=== PATIENT | female | born 1955 | race Caucasian/White ===

== ENCOUNTER 2016-10-03 19:38 | Emergency (ER) | payer OTHER ==
[~2016-10-03] VITALS: Ht 154.9 cm; Wt 70.3 kg
[~2016-10-03 19:38] MED LIST: ATIVAN0.5 M1 PO; ATIVAN2 MG PO; CIMETIDINE400 M1; ENALAPRIL MALEA20 M1; PROZAC20 MG PO
[2016-10-03 19:45] VITALS: BP 135/89
--- NOTE | 2016-10-03 20:01 | NUR ---
AMBULATED TO ER BED 7
--- NOTE | 2016-10-03 20:10 | NUR ---
61 Y/O C/O ABD PAIN AND DISCONFORT ON LOWER ABD. DENIES ANY BURNING WITH URINATION, FEVER, NAUSEA OR VOMMITING. PT STATES HAS A HX OF DIVERTICULATIS. ER MD AWARED OF IT.
--- NOTE | 2016-10-03 20:58 | NUR ---
PER ER MD VERBAL ORDERS 0.9 NORMAL SALINE INITIATED 100 ML/HR.
[2016-10-03] MEDS ORDERED: NACL 0.9% 1,000 ML IV ONE (21:00)
[2016-10-03 21:32] VITALS: BP 142/84
--- NOTE | 2016-10-03 21:32 | NUR ---
Patient discharged with v/s stable. Written and verbal after care instructions given and explained. Patient alert, oriented and verbalized understanding of instructions. Ambulatory with steady gait. All questions addressed prior to discharge. ID band removed. Patient advised to follow up with PMD. Rx of AUGMENTIN AND RANITIDINE HYDROCHLORIDE given. Patient educated on indication of medication including possible reaction and side effects. Opportunity to ask questions provided and answered.
== END 2016-10-03 21:45 | disposition home or self-care (01) ==
LOC: MED 19:38
DX: N39.0 Urinary tract infection, site not specified (principal); K21.9 Gastro-esophageal reflux disease without esophagitis; I10 Essential (primary) hypertension; Z88.8 Allergy status to other drugs, medicaments and biological substances
CPT/HCPCS: 81001; 87086; 87186; 96360; 99284; J7030

== ENCOUNTER 2016-12-12 21:11 | Emergency (ER) | payer OTHER ==
[~2016-12-12] VITALS: Ht 157.5 cm; Wt 76.3 kg
[~2016-12-12 21:11] MED LIST changes: -ATIVAN0.5 M1 PO; -ATIVAN2 MG PO; -CIMETIDINE400 M1; +ENAL20TA6; -ENALAPRIL MALEA20 M1; +FLUO-387 PO; +LORA-478 PO; -PROZAC20 MG PO; +[UNRECOGNIZED DRUG - CODE]
[2016-12-12 21:30] VITALS: BP 144/96
--- NOTE | 2016-12-12 23:42 | NUR ---
TO ER BED 5
--- NOTE | 2016-12-12 23:47 | NUR ---
61 Y/O F W/C/O ABD DISTENTION FOR 1 WEEK, NO BM FOR 3 DAYS, FEET ON "FIRE", AND "FEELS" DEHYDRATED. NO S/S OF DISTRESS NOTED.MED HX: DIVERTICULITIS, COPD, ACID REFLUX, CHRONIC ANXIETY.
[2016-12-13] MEDS ORDERED: DICYCLOMINE HCL LIQUID 20 MG, ALUMINUM HYD/MAG/SIMETHICONE 30 ML, LIDOCAINE VISCOUS 2% ... PO ONE ×3 (00:10)
[2016-12-13] MEDS ORDERED: ALUMINUM HYD/MAG/SIMETHICONE 30 ML UDC ONE (00:16)
[2016-12-13] MEDS ORDERED: LIDOCAINE VISCOUS 2% 20 ML UDC ONE (00:16)
[2016-12-13] MEDS ORDERED: DICYCLOMINE HCL LIQUID 10 MG/5 ML UDC ONE (00:30)
[2016-12-13] MEDS ORDERED: MAGNESIUM CITRATE 300 ML BTL PO ONE (00:50)
[2016-12-13 01:11] VITALS: BP 139/86
--- NOTE | 2016-12-13 01:11 | NUR ---
Patient discharged with v/s stable. Written and verbal after care instructions given and explained. Patient alert, oriented and verbalized understanding of instructions. Ambulatory with steady gait. All questions addressed prior to discharge. ID band removed. Patient advised to follow up with PMD THIS WK OR RETURN TO ER IF CONDITION WORSENS. Rx of COLACE, AND DIPHENHYDRAMINE HYDROCHLORIDE given. Patient educated on indication of medication including possible reaction and side effects. Opportunity to ask questions provided and answered.
== END 2016-12-13 01:11 | disposition home or self-care (01) ==
LOC: MED 21:11
DX: K59.00 Constipation, unspecified (principal); K21.9 Gastro-esophageal reflux disease without esophagitis; I10 Essential (primary) hypertension; Z88.8 Allergy status to other drugs, medicaments and biological substances
CPT/HCPCS: 74000; 93005; 99284

== ENCOUNTER 2017-03-11 12:34 | Emergency (ER) | payer OTHER ==
[~2017-03-11] VITALS: Ht 154.9 cm; Wt 76.7 kg
[2017-03-11 13:20] VITALS: BP 155/76
--- NOTE | 2017-03-11 17:36 | NUR ---
Patient ambulated to bed 5. RN evaluating patient at bedside.
--- NOTE | 2017-03-11 17:40 | NUR ---
PATIENT PRESENTS TO ED WITH C/O ABDOMINAL DISCOMFORT WITH HEARTBURN AND SENSATION OF BEING BLOATED X 1 WK CONSTIPATION AND WATERY STOOLS HX---DIVERTICULITIS, GERD, COPD, HTN, ANXIETY, RX---ATIVAN, AMBIEN . DENIES N/V/; SKIN IS PINK/WARM/DRY; AAOX4 WITH EVEN AND STEADY GAIT; LUNGS CLEAR BL; HR EVEN AND REGULAR; PT DENIES ANY FEVER, CP, SOB, OR COUGH AT THIS TIME; PATIENT STATES PAIN OF 0/10 AT THIS TIME; VSS; PATIENT POSITIONED FOR COMFORT; HOB ELEVATED; BEDRAILS UP X2; BED DOWN. ER MD MADE AWARE OF PT STATUS.
[2017-03-11] MEDS ORDERED: NACL 0.9% 1,000 ML IV SCH (17:42)
[2017-03-11] MEDS ORDERED: ONDANSETRON 4 MG/2 ML VIAL IVP ONE (17:45)
[2017-03-11] MEDS ORDERED: FAMOTIDINE 20 MG/2 ML VIAL IVP ONE (17:45)
[2017-03-11 18:09] LABS: CALCIUM 9.2 mg/dL (8.5-10.1); CARBON DIOXIDE 25.5 mmol/L (21-32); POTASSIUM 4.5 mmol/L (3.5-5.1)
[2017-03-11 18:10] LABS: APPEARANCE,URINE SL CLOUDY (CLEAR); BILIRUBIN,URINE NEGATIVE (NEGATIVE); BLOOD, URINE TRACE-I (NEGATIVE); COLOR,URINE YELLOW (YELLOW); LEUKOCYTE ESTERASE ,URINE NEGATIVE (NEGATIVE); NITRITE, URINE POSITIVE (NEGATIVE); PH,URINE 5.5 (5.0-9.0); PROTEIN,URINE NEGATIVE (NEGATIVE); UGLUCOSE NEGATIVE (NEGATIVE); UROBILINOGEN,URINE 0.2 EU/dL (0.2 - 1)
[2017-03-11 18:15] LABS: BACTERIA,URINE 4+ /HPF (None Seen); SQUAMOUS EPITHELIAL CELL,UR 4-10 (MOD) /LPF (0-3 (FEW))
[2017-03-11 18:17] LABS: ALBUMIN 3.6 g/dL (3.4-5.0); TOTAL BILIRUBIN 0.3 mg/dL (0.0-1.0); TOTAL PROTEIN, SERUM 8.4 g/dL (6.4-8.2)
--- NOTE | 2017-03-11 18:21 | NUR ---
Dr. Moore evaluating patient at bedside.
--- NOTE | 2017-03-11 18:35 | NUR ---
computer tech at bedside.
[2017-03-11] MEDS ORDERED: cefTRIAXone 1,000 MG VIAL ONE (18:40)
[2017-03-11 19:13] LABS: BASOPHILS # (AUTO) 0.1 K/uL (0.00-0.22); BASOPHILS % (AUTO) 2.1 % (0.0-2.0); EOSINOPHILS # (AUTO) 0.3 K/uL (0-0.4); EOSINOPHILS % (AUTO) 4.9 % (0.0-4.0); HEMATOCRIT 41.4 % (36-48); HEMOGLOBIN 13.5 g/dL (12.0-16.0); LYMPHOCYTES % (AUTO) 28.4 % (20.5-51.1); MEAN CORPUSCULAR HEMOGLOBIN 30 pg (27-31); MEAN CORPUSCULAR HGB CONC 33 g/dL (33-37); MEAN CORPUSCULAR VOLUME 91 fL (80-94); MONOCYTES # (AUTO) 0.6 K/uL (0.8-1.0); MONOCYTES % (AUTO) 8.1 % (1.7-9.3); NEUTROPHILS % (AUTO) 56.5 % (42.2-75.2); PLATELET COUNT (AUTO) 301 K/uL (140-450); RED BLOOD CELL COUNT(AUTO) 4.55 MIL/uL (4.20-5.40); RED CELL DISTRIBUTION WIDTH 12.4 % (11.6-13.7)
[2017-03-11 19:30] VITALS: BP 133/85
--- NOTE | 2017-03-11 19:30 | NUR ---
Patient discharged with v/s stable. Written and verbal after care instructions given and explained. Patient alert, oriented and verbalized understanding of instructions. Ambulatory with steady gait. All questions addressed prior to discharge. ID band removed. Patient advised to follow up with PMD. Rx of KEFLEX, TYLENOL, COLACE, [employer] DISPOSABLE RECTAL ENEMA given. Patient educated on indication of medication including possible reaction and side effects. Opportunity to ask questions provided and answered.
== END 2017-03-11 19:30 | disposition home or self-care (01) ==
LOC: MED 12:34
DX: N30.90 Cystitis, unspecified without hematuria (principal); K59.00 Constipation, unspecified; K21.9 Gastro-esophageal reflux disease without esophagitis; I10 Essential (primary) hypertension; Z88.8 Allergy status to other drugs, medicaments and biological substances
CPT/HCPCS: 36415; 74000; 80053; 81001; 82150; 83690; 85025; 87086; 87186; 96361; 96365; 96375; 99285; J0696; J2405; J3490; J7030; J7060; Q0092

== ENCOUNTER 2017-11-25 22:25 | Emergency (ER) | payer OTHER ==
[~2017-11-25] VITALS: Ht 154.9 cm; Wt 74.8 kg
[~2017-11-25 22:25] MED LIST changes: -FLUO-387 PO
[2017-11-25 22:31] VITALS: BP 158/81
--- NOTE | 2017-11-25 22:37 | NUR ---
PT TAKEN TO CHAIR D
--- NOTE | 2017-11-25 22:40 | NUR ---
PATIENT IS A 62 Y/O FEMALE WHO PRESENTS TO THE ED C/O RIGHT FOOT PAIN. PT STATES, "I HIT MY FOOT ON THE PORCH AND IT HURTS." PT REPORTS 10/10 ACHING RIGHT FOOT PAIN THAT DOES NOT RADIATE. NO BLEEDING OR DEFORMITY NOTED. PT DENIES CP, SOB, N/V/D. PT AAOX4, RR EVEN/UNLABORED. PT REPOSITIONED FOR COMFORT, PT SITTING IN CHAIR. ER MD JEWELL SECHRIST NOTIFIED. WILL CONTINUE TO MONITOR.
--- NOTE | 2017-11-25 22:46 | NUR ---
PT TAKEN TO RADIOLOGY
--- NOTE | 2017-11-25 23:02 | NUR ---
Dr. Noel evaluating patient.
[2017-11-25] MEDS ORDERED: HYDROcodone/APAP 5/325 MG 1 TAB TAB PO ONE (23:10)
[2017-11-26 01:45] VITALS: BP 150/99
--- NOTE | 2017-11-26 01:45 | NUR ---
Patient discharged with v/s stable. Written and verbal after care instructions given and explained. Patient verbalized understanding. Ambulatory with steady gait. All questions addressed prior to discharge. Advised to follow up with PMD.
== END 2017-11-26 01:45 | disposition home or self-care (01) ==
LOC: MED 22:25
DX: S93.601A Unspecified sprain of right foot, initial encounter (principal); S80.01XA Contusion of right knee, initial encounter; M54.2 Cervicalgia; J44.9 Chronic obstructive pulmonary disease, unspecified; K21.9 Gastro-esophageal reflux disease without esophagitis; I10 Essential (primary) hypertension; Z88.8 Allergy status to other drugs, medicaments and biological substances; Z90.710 Acquired absence of both cervix and uterus; F17.210 Nicotine dependence, cigarettes, uncomplicated; W18.39XA Other fall on same level, initial encounter; Y93.89 Activity, other specified; Y92.89 Other specified places as the place of occurrence of the external cause; Y99.8 Other external cause status
CPT/HCPCS: 72050; 73562; 73630; 99284

== ENCOUNTER 2018-03-05 04:55 | Emergency (ER) | payer OTHER ==
[~2018-03-05] VITALS: Ht 152.4 cm; Wt 71.2 kg
[2018-03-05 04:59] VITALS: BP 145/89
--- NOTE | 2018-03-05 05:04 | NUR ---
PT AMBULATED TO BED 6
--- NOTE | 2018-03-05 05:10 | NUR ---
62 Y/O BIB SELF W/C/O CHEST CONGESTION X 3DAYS. PT DENIES N/V/D/ AND PAIN. PT STATES SHE HAS HAD A COUGH X3DAYS WITH WHITE PHLEM. PT AAOX4, ON ROOM AIR O2 SAT: 99%. RR EVEN/UNLABORED. NO S/S OF DISTRESS NOTED. SKIN WARM AND DRY TO TOUCH. ALL NEEDS MET, WILL CONTINUE TO MONITOR, DR. PATEL MADE AWARE
--- NOTE | 2018-03-05 05:39 | NUR ---
X-Ray at bedside.
--- NOTE | 2018-03-05 05:39 | NUR ---
LABS DRAWN AT THIS TIME. PT TOLERATED WELL
[2018-03-05 05:48] LABS: BASOPHILS % (AUTO) 0.6 % (0.0-2.0); EOSINOPHILS # (AUTO) 0.2 K/uL (0-0.4); EOSINOPHILS % (AUTO) 3.5 % (0.0-4.0); LYMPHOCYTES # (AUTO) 1.7 K/uL (2.5-16.5); MEAN CORPUSCULAR HEMOGLOBIN 31 pg (27-31); MEAN CORPUSCULAR HGB CONC 34 g/dL (33-37); MEAN CORPUSCULAR VOLUME 89.6 fL (80-94); MONOCYTES # (AUTO) 0.7 K/uL (0.8-1.0); MONOCYTES % (AUTO) 10.8 % (1.7-9.3); NEUTROPHILS # (AUTO) 3.8 K/uL (1.8-7.7); NEUTROPHILS % (AUTO) 59.1 % (42.2-75.2); PLATELET COUNT (AUTO) 262 K/uL (140-450); RED BLOOD CELL COUNT(AUTO) 4.24 MIL/uL (4.20-5.40); RED CELL DISTRIBUTION WIDTH 13.4 % (11.6-13.7); WHITE BLOOD COUNT (AUTO) 6.5 K/uL (4.8-10.8)
[2018-03-05 05:55] LABS: ANION GAP 12.6 (8-16); CARBON DIOXIDE 25.5 mmol/L (21-32); CREATININE 1.1 mg/dL (0.6-1.3); POTASSIUM 4.1 mmol/L (3.5-5.1)
[2018-03-05 06:01] LABS: ALBUMIN 3.5 g/dL (3.4-5.0); TOTAL BILIRUBIN 0.4 mg/dL (0.0-1.0)
--- NOTE | 2018-03-05 06:21 | NUR ---
Dr. Atkins evaluating patient at bedside.
--- NOTE | 2018-03-05 06:27 | NUR ---
Patient discharged BY DR. PATEL with v/s stable. Written and verbal after care instructions given and explained. Patient alert, oriented and verbalized understanding of instructions. Ambulatory with steady gait. All questions addressed prior to discharge. ID band removed. Patient advised to follow up with PMD. Rx of AUGMENTIN 875 MG AND PROMETHAZINE DM 6.25 MG given. Patient educated on indication of medication including possible reaction and side effects. Opportunity to ask questions provided and answered.
[2018-03-05 06:28] VITALS: BP 135/82
== END 2018-03-05 06:27 | disposition home or self-care (01) ==
LOC: MED 04:55
DX: J20.9 Acute bronchitis, unspecified (principal); J44.9 Chronic obstructive pulmonary disease, unspecified; K21.9 Gastro-esophageal reflux disease without esophagitis
CPT/HCPCS: 36415; 71045; 80053; 83880; 84484; 85025; 93005; 99285; Q0092

== ENCOUNTER 2018-10-29 15:47 | Emergency (ER) | payer OTHER ==
[~2018-10-29] VITALS: Ht 154.9 cm; Wt 75.7 kg
[2018-10-29 16:50] VITALS: BP 184/80
--- NOTE | 2018-10-29 18:15 | NUR ---
PATIENT AMBULATED TO ER CHAIR E.
--- NOTE | 2018-10-29 18:20 | NUR ---
PT IS A 63 Y/O FEMALE WHO PRESENTS TO THE ED C/O COUGH. PER PT HAD COUGH X4 DAYS HOME OFFICE REPRESENTATIVE, REPORTS YELLOW PHLEGM. PT REPORTS 5/10 ACHING HEADACHE PAIN THAT DOES NOT RADIATE. PT DENIES CP, SOB, DENIES N/V/D. PT AWAKE AND ALERT, RR EVEN/UNLABORED. PT REPOSITIONED FOR COMFORT, BED IN LOWEST POSITION. ER PROVIDER NOTIFIED. WILL CONTINUE TO MONITOR. PMH--COPD, DIVERTICULITIS ALLERGIES---COMPAZINE
[2018-10-29] MEDS ORDERED: DEXAMETHASONE 10 MG/ML VIAL IM ONE (19:50)
[2018-10-29 20:18] VITALS: BP 160/81
--- NOTE | 2018-10-29 20:18 | NUR ---
Patient discharged with v/s stable. Written and verbal after care instructions given and explained. Patient alert, oriented and verbalized understanding of instructions. Ambulatory with steady gait. All questions addressed prior to discharge. ID band removed. Patient advised to follow up with PMD. Rx of ALBUTEROL 90MCG, PROMETHAZINE DM 6.25MG-15MG/5ML AND IBUPROFEN 800MG given. Patient educated on indication of medication including possible reaction and side effects. Opportunity to ask questions provided and answered.
== END 2018-10-29 20:18 | disposition home or self-care (01) ==
LOC: MED 15:47
DX: J06.9 Acute upper respiratory infection, unspecified (principal); J44.9 Chronic obstructive pulmonary disease, unspecified; K21.9 Gastro-esophageal reflux disease without esophagitis; I10 Essential (primary) hypertension; Z79.899 Other long term (current) drug therapy; Z88.8 Allergy status to other drugs, medicaments and biological substances
CPT/HCPCS: 96372; 99283; J1100

== ENCOUNTER 2019-01-10 17:27 | Emergency (ER) | payer OTHER ==
[~2019-01-10] VITALS: Ht 152.4 cm; Wt 72.3 kg
[2019-01-10 17:35] VITALS: BP 148/91
--- NOTE | 2019-01-10 17:40 | NUR ---
PT AMBUALTED TO LOBBY AT THIS TIME, VSS.
--- NOTE | 2019-01-10 17:50 | NUR ---
C/O COUGH X3 DAYS. PT REPORTS COUGHING UP GREEN SPUTUM. PT REPORTS SOB WHEN COUGHING. RR EVEN, SYMMETRICAL, NON-LABORED AND BREATH SOUNDS CLEAR. PT REPORTS BODY ACHES AT 10/10.
--- NOTE | 2019-01-10 19:12 | NUR ---
Patient discharged with v/s stable. Written and verbal after care instructions given and explained. Patient alert, oriented and verbalized understanding of instructions. Ambulatory with steady gait. All questions addressed prior to discharge. ID band removed. Patient advised to follow up with PMD. Rx of Motrin, Robitussin and Prednisone given. Patient educated on indication of medication including possible reaction and side effects. Opportunity to ask questions provided and answered.
[2019-01-10 19:16] VITALS: BP 130/87
== END 2019-01-10 19:12 | disposition home or self-care (01) ==
LOC: MED 17:27
DX: J06.9 Acute upper respiratory infection, unspecified (principal); J44.9 Chronic obstructive pulmonary disease, unspecified; K21.9 Gastro-esophageal reflux disease without esophagitis; I10 Essential (primary) hypertension; Z87.891 Personal history of nicotine dependence; Z79.899 Other long term (current) drug therapy; Z88.8 Allergy status to other drugs, medicaments and biological substances
CPT/HCPCS: 71046; 99283

== ENCOUNTER 2019-01-12 18:28 | Emergency (ER) | payer OTHER ==
[~2019-01-12] VITALS: Ht 154.9 cm; Wt 73.0 kg
[2019-01-12 18:39] VITALS: BP 174/106
--- NOTE | 2019-01-12 18:45 | NUR ---
Note marieone in EDM - 01/12/19 at 2201 by MEDDCV Patient discharged with v/s stable. Written and verbal after care instructions given and explained. Patient alert, oriented and verbalized understanding of instructions. Ambulatory with steady gait. All questions addressed prior to discharge. ID band removed. Patient advised to follow up with PMD. Rx of PRELONE 15MG/5ML AND BENADRYL ALLERGY 12.5MG/5ML given. Patient educated on indication of medication including possible reaction and side effects. Opportunity to ask questions provided and answered.
--- NOTE | 2019-01-12 19:20 | NUR ---
PT BIB SELF C/O COUGHING X4 DAYS WAS SEEN HERE BUT COUGH HAS GOT WORSE. PT ACTING APPROPRIATLY. PT SPEAKING IN CLEAR AND COMPLETE SENTENCES. DR. MCCRAY AT BEDSIDE FOR EVALUATION. WILL CONTINUE TO MONITOR.
--- NOTE | 2019-01-12 19:20 | NUR ---
DR. MCCRAY AT BEDSIDE FOR EVALUATION.
[2019-01-12] MEDS ORDERED: DOXYCYCLINE 100 MG CAP PO SCH (19:25)
[2019-01-12] MEDS ORDERED: ALBUTEROL SULFATE/IPRATROPIU 3 ML SOL IH ONE (19:25)
--- NOTE | 2019-01-12 20:59 | NUR ---
Patient discharged with v/s stable. Written and verbal after care instructions given and explained. Patient alert, oriented and verbalized understanding of instructions. Ambulatory with steady gait. All questions addressed prior to discharge. ID band removed. Patient advised to follow up with PMD. Rx of DOXYCYLINE given. Patient educated on indication of medication including possible reaction and side effects. Opportunity to ask questions provided and answered.
[2019-01-12 21:00] VITALS: BP 168/97
== END 2019-01-12 21:00 | disposition home or self-care (01) ==
LOC: MED 18:28
DX: J44.1 Chronic obstructive pulmonary disease with (acute) exacerbation (principal); K21.9 Gastro-esophageal reflux disease without esophagitis; I10 Essential (primary) hypertension; Z79.899 Other long term (current) drug therapy; Z88.8 Allergy status to other drugs, medicaments and biological substances
CPT/HCPCS: 94640; 99283; J7620

== ENCOUNTER 2019-12-15 16:18 | Inpatient (IN) | payer OTHER, MEDICARE, SELFPAY ==
[~2019-12-15] VITALS: Ht 152.4 cm; Wt 73.5 kg
--- NOTE | 2019-12-15 16:32 | NUR ---
PT AMBULATED TO BED 6.
[2019-12-15 16:36] VITALS: BP 146/101
--- NOTE | 2019-12-15 16:41 | NUR ---
64 Y/O FEMALE C/O NAUSEA/VOMITING/DIARRHEA SINCE THIS MORNING. DENIES ABD PAIN. ABD SOFT, ROUND, NONTENDER. RR EVEN AND UNLABORED. BOWEL SOUNDS PRESENT X 4 QUAD. PT POSITIONED FOR COMFORT. HOB ELEVATED. PT PLACED ON MONITOR. VSS
--- NOTE | 2019-12-15 16:43 | NUR ---
URINE CUP HANDED TO PT FOR SAMPLE
[2019-12-15] MEDS ORDERED: ONDANSETRON 4 MG/2 ML VIAL IVP ONE (16:45)
[2019-12-15] MEDS ORDERED: NACL 0.9% 1,000 ML IV ONE (16:45)
--- NOTE | 2019-12-15 16:56 | NUR ---
EKG PERFORMED AT BEDSIDE
[2019-12-15 17:02] LABS: BASOPHILS # (AUTO) 0.1 K/uL (0.00-0.22); BASOPHILS % (AUTO) 0.5 % (0.0-2.0); EOSINOPHILS % (AUTO) 0.1 % (0.0-4.0); HEMATOCRIT 48.9 % (36-48); HEMOGLOBIN 16.6 g/dL (12.0-16.0); LYMPHOCYTES # (AUTO) 1.5 K/uL (2.5-16.5); LYMPHOCYTES % (AUTO) 9.2 % (20.5-51.1); MEAN CORPUSCULAR HEMOGLOBIN 31 pg (27-31); MEAN CORPUSCULAR HGB CONC 34 g/dL (33-37); MEAN CORPUSCULAR VOLUME 90.2 fL (80-94); MONOCYTES # (AUTO) 1.1 K/uL (0.8-1.0); NEUTROPHILS # (AUTO) 13.7 K/uL (1.8-7.7); NEUTROPHILS % (AUTO) 83.2 % (42.2-75.2); PLATELET COUNT (AUTO) 438 K/uL (140-450); RED BLOOD CELL COUNT(AUTO) 5.42 MIL/uL (4.20-5.40); WHITE BLOOD COUNT (AUTO) 16.4 K/uL (4.8-10.8)
[2019-12-15 17:23] LABS: ALBUMIN 4.3 g/dL (3.4-5.0); ANION GAP 18.8 (8-16); CARBON DIOXIDE 25.1 mmol/L (21-32); CREATININE 1.3 mg/dL (0.6-1.3); POTASSIUM 3.9 mmol/L (3.5-5.1); TOTAL BILIRUBIN 0.8 mg/dL (0.0-1.0)
--- NOTE | 2019-12-15 17:35 | NUR ---
FLU SWAB COLLECTED AND GIVEN TO TRAIL CONSTRUCTION WORKER.
--- NOTE | 2019-12-15 17:35 | NUR ---
XR AT BEDSIDE.
[2019-12-15 17:40] LABS: BILIRUBIN,URINE 1+ (NEGATIVE); BLOOD, URINE TRACE-I (NEGATIVE); COLOR,URINE YELLOW (YELLOW); LEUKOCYTE ESTERASE ,URINE NEGATIVE (NEGATIVE); NITRITE, URINE NEGATIVE (NEGATIVE); PH,URINE 5.5 (5.0-9.0); UGLUCOSE NEGATIVE (NEGATIVE)
[2019-12-15 17:41] LABS: APPEARANCE,URINE CLOUDY (CLEAR)
[2019-12-15 18:08] LABS: RBC,URINE 0-5 /HPF (0-5); URINE AMORPHOUS URATE 4+ /HPF (None Seen); WBC,URINE 0-5 /HPF (0-5)
[2019-12-15] MEDS ORDERED: METOCLOPRAMIDE 10 MG/2 ML INJ VIAL IVP ONE (18:30)
[2019-12-15] MEDS ORDERED: METOCLOPRAMIDE 10 MG/2 ML INJ VIAL ONE (18:31)
[2019-12-15] MEDS ORDERED: ONDANSETRON 4 MG/2 ML VIAL IM/IVP PRN (18:40)
[2019-12-15] MEDS ORDERED: DOCUSATE SODIUM 100 MG GELCAP PO PRN (18:40)
[2019-12-15] MEDS ORDERED: ACETAMINOPHEN 325 MG TAB PO PRN (18:40)
[2019-12-15 18:58] LABS: BARBITURATE, URINE NEGATIVE ng/ml (NEG <=200); BENZODIAZEPINE, URINE POSITIVE ng/mL (NEG <=200); CANNABINOID, URINE POSITIVE ng/mL (NEG <=50); COCAINE, URINE NEGATIVE ng/mL (NEG <=300); OPIATE, URINE NEGATIVE ng/mL (NEG <=2000); PHENCYCLIDINE SCREEN,URINE NEGATIVE ng/mL (NEG <=25)
[2019-12-15 19:45] VITALS: BP 144/93
--- NOTE | 2019-12-15 19:45 | NUR ---
RECEIVED BEDSIDE REPORT FROM SHE ASENCIO. PT IS AAOX2 SELF, PLACE. RESPIRATIONS ARE EQUAL AND UNLABORED ON ROOM AIR. LUNG SOUNDS ARE CLEAR. SPEECH IS CLEAR. PT IS ABLE TO FOLLOW COMMAND. PT AMBULATED FROM GURNEY TO BED WITH ASSIST. PT WITH STEADY GAIT BUT STATES FEELS DIZZY. SKIN IS INTACT. IV ON LAC 20G. C/C N/V/D X1 DAY. PT STATES HAD 3 EPISODES OF DIARRHEA AT HOME NON BLOODY. BOWEL SOUNDS ACTIVE X4. ABDOMEN IS SOFT AND NON TENDER. PT DENIES ANY PAIN. PT CAN MOVE ALL EXTREMITIES EQUALLY. ADMIT VS: 144/93 HR 103 96% RA RR 16 98.2 DENIES PAIN. ORIENTED PT TO ROOM, STAFF AND CALL LIGHT. MRSA SWAB OBTAINED. CALL LIGHT IS WITHIN REACH. WILL CONTINUE TO MONITOR.
--- NOTE | 2019-12-15 19:45 | NUR ---
Patient will be admitted to care of Dr. Smith. Admited to TELE. Will go to room 121 A. Belongings list completed. Report to ELIF Sinha.
[2019-12-15] MEDS ORDERED: cefTRIAXone 1,000 MG VIAL ONE (20:22)
[2019-12-15] MEDS: NACL 0.9% 1,000 ML IV SCH (20:30)
--- NOTE | 2019-12-15 20:30 | NUR ---
VSS. IV ROCEPHIN NOW INFUSING PER ORDERS. ALL NEEDS MET AT THIS TIME. WILL CONTINUE TO MONITOR.
[2019-12-15] MEDS: LISINOPRIL 5 MG TAB PO SCH (20:36)
--- NOTE | 2019-12-15 21:00 | NUR ---
COLLECTED URINE SPECIMEN AND SENT TO LAB FOR URINE CX. PT IS BACK IN BED WITH NO S/S OF DISTRESS. WILL CONTINUE TO MONITOR.
[2019-12-15] MEDS: metroNIDAZOLE 500 MG/NS PREMIX 100 ML IV SCH (21:08)
[2019-12-15 21:12] LABS: PROTHROMBIN TIME 9.7 secs (10.8-13.4)
[2019-12-15 21:25] LABS: MAGNESIUM 2.2 mg/dL (1.8-2.4); PHOSPHORUS 3.8 mg/dL (2.5-4.9); THYROID STIMULATING HORMONE 1.62 uIU/mL (0.34-3.74)
--- NOTE | 2019-12-15 23:00 | NUR ---
ASSISTED PT TO BATHROOM. PT WITH WATERY AND FLUFFY PIECES BM. STOOL WAS COLLECTED AND SENT TO LAB.
[2019-12-16] VITALS: BP 140/68
--- NOTE | 2019-12-16 | NUR ---
VITAL SIGNS ARE WITHIN NORMAL LIMITS. ALL SAFETY MEASURES ARE IN PLACE. CALL LIGHT IS WITHIN REACH. WILL CONTINUE TO MONITOR.
--- NOTE | 2019-12-16 02:15 | NUR ---
PATIENT IS SLEEPING COMFORTABLY IN BED WITH EYES CLOSED. CHEST RISE AND FALL. WILL CONTINUE TO MONITOR.
[2019-12-16 04:00] VITALS: BP 131/66
--- NOTE | 2019-12-16 04:20 | NUR ---
VITAL SIGNS ARE WITHIN NORMAL LIMITS. PT DENIES ANY PAIN. ALL SAFETY MEASURES ARE IN PLACE. WILL CONTINUE TO MONITOR.
[2019-12-16] MEDS: NACL 0.9% 1,000 ML IV SCH ×2 (04:33→13:39)
[2019-12-16] MEDS: metroNIDAZOLE 500 MG/NS PREMIX 100 ML IV SCH ×3 (05:04→21:00)
[2019-12-16 06:08] LABS: BASOPHILS % (AUTO) 0.2 % (0.0-2.0); EOSINOPHILS % (AUTO) 0.1 % (0.0-4.0); HEMATOCRIT 41.4 % (36-48); HEMOGLOBIN 13.9 g/dL (12.0-16.0); LYMPHOCYTES # (AUTO) 1.6 K/uL (2.5-16.5); LYMPHOCYTES % (AUTO) 9.9 % (20.5-51.1); MEAN CORPUSCULAR HEMOGLOBIN 31 pg (27-31); MEAN CORPUSCULAR HGB CONC 34 g/dL (33-37); MEAN CORPUSCULAR VOLUME 91.2 fL (80-94); MONOCYTES % (AUTO) 6.6 % (1.7-9.3); NEUTROPHILS # (AUTO) 13.1 K/uL (1.8-7.7); NEUTROPHILS % (AUTO) 83.2 % (42.2-75.2); PLATELET COUNT (AUTO) 325 K/uL (140-450); RED BLOOD CELL COUNT(AUTO) 4.54 MIL/uL (4.20-5.40); RED CELL DISTRIBUTION WIDTH 13.8 % (11.6-13.7); WHITE BLOOD COUNT (AUTO) 15.7 K/uL (4.8-10.8)
[2019-12-16 06:54] LABS: ANION GAP 16.9 (8-16); POTASSIUM 3.9 mmol/L (3.5-5.1)
[2019-12-16 06:58] LABS: CHOL/HDL RATIO 3.4 (1-4.5); MAGNESIUM 1.9 mg/dL (1.8-2.4); PHOSPHORUS 3.4 mg/dL (2.5-4.9)
--- NOTE | 2019-12-16 07:29 | NUR ---
GAVE BEDSIDE REPORT TO DAY RN. PT ENDORSED IN STABLE CONDITION.
--- NOTE | 2019-12-16 07:30 | NUR ---
RECEIVED REPORT FROM MUSIC JOURNALIST NURSE. PATIENT LYING DOWN IN BED WATCHING TV. NO DISTRESS NOTED. DENIES ANY PAIN. PER NIGHT 3N, PATIENT HAD 3X DIARRHEA LAST NIGHT AND 3X BEFORE PATIENT GOT ADMITTED. AAOX3, CALM, COOPERATIVE, SKIN COLOR APPROPRIATE TO ETHNICITY, WARM TO TOUCH. SKIN INTACT. RESPIRATIONS EVEN, UNLABORED, ON ROOM AIR. IV SITE INTACT, PATENT, AND INFUSING IVF PER MD ORDERS. SAFETY MEASURES IN PLACE, CALL LIGHT WITHIN REACH. WILL CONTINUE TO MONITOR.
[2019-12-16 08:00] VITALS: BP 150/82
--- NOTE | 2019-12-16 08:55 | NUR ---
PATIENT HAS BEEN SCREENED AND CATEGORIZED MODERATE NUTRITION RISK. PATIENT WILL BE SEEN WITHIN 3-5 DAYS OF ADMISSION. 12/18/19 12/20/[address]
[2019-12-16] MEDS: LISINOPRIL 5 MG TAB PO SCH (10:24)
--- NOTE | 2019-12-16 10:50 | NUR ---
PATIENT LYING DOWN IN BED, WATCHING TV. NO DISTRESS NOTED. DENIES ANY PAIN. SCHEDULED MEDICATIONS DUE GIVEN. COVID SWAB PERFORMED ON PATIENT. WILL CONTINUE TO MONITOR.
--- NOTE | 2019-12-16 11:16 | NUR ---
DISCHARGE PLANNING: THIS IS A 64 Y/O FEMALE PATIENT FROM HOME, WHO CAME IN DUE TO NAUSEA AND VOMITING. PAST MEDICAL HISTORY INCLUDE ESSENTIAL HTN AND DYSLIPIDEMIA. INITIAL DIAGNOSIS OF LEUKOCYTOSIS. CURRENT LABS INCLUDE WBC 15.7, H/H 13.9/41.4, NA/K 140/3.9, BUN/CREA 27/1.0. UDS SHOWED (+) FOR AMPHETAMINES, BENZO AND CANNABINOIDS. ON METRONIDAZOLE AND ROCEPHIN IV. GI CONSULT WITH DR ANN FOR FECAL OCCULT BLOOD POSITIVE IN PLACE. ON NPO EXCEPT MEDS. DC PLAN BACK TO HOME ONCE STABLE. Addendum: 12/17/19 at 1159 by Rachel Riojas CM COVID PENDING. GI, PULMO AND ID CONSULTS IN PLACE. CURRENT LABS WNL. ON METRONIDAZOLE AND ROCEPHIN. PER GI CONSULT - NO GI INTERVENTION AT THIS TIME. DC PLAN PENDING ON PATIENT'S RESPONSE TO TREATMENT. Addendum: 12/18/19 at 1134 by Rachel Riojas CM FOR PT EVAL TODAY. STOOL NEGATIVE FOR SHIGA TOXIN, POSITIVE FOR C DIFF. ON LEVOFLOXACIN AND PROTONIX IV. GI, ID AND PULMO CONSULTS IN PLACE. DC PLAN BACK TO HOME ONCE STABLE. Addendum: 12/19/19 at 1057 by Rachel Riojas CM MET WITH THE PATIENT AT THE BEDSIDE TO CONFIRM ADDRESS. SHE STATED HER ADDRESS IS [address] [place] [address]. SHE CONFIRMED THAT THE NUMBER [phone] FOR [facility] IS CORRECT. SHE ALSO STATED THAT SHE HAVE $20 ON HAND AND NEEDS HELP GETTING A CAB TO GO HOME. CONTACTED [employer] AT [phone] TO GET A QUOTE. ABLE TO SPEAK TO [employer]. HE STATED IT WILL BE $8. I INFORMED HIM THAT PATIENT IS READY NOW. HE STATED THEY WILL BE HERE IN 15-35 MINS. PRIMARY RN TOMAS MADE AWARE.
--- NOTE | 2019-12-16 13:00 | NUR ---
PATIENT SITTING IN BED. NO DISTRESS NOTED. DENIES ANY PAIN. SCHEDULED MEDICATIONS DUE GIVEN. WILL CONTINUE TO MONITOR.
[2019-12-16 13:52] VITALS: BP 140/70
--- NOTE | 2019-12-16 15:00 | NUR ---
PATIENT LYING DOWN IN BED SLEEPING, AROUSABLE BY VOICE. NO DISTRESS NOTED. CONDITION UNCHANGED. WILL CONTINUE TO MONITOR.
[2019-12-16 16:00] VITALS: BP 136/76
--- NOTE | 2019-12-16 18:00 | NUR ---
REMOVED TELE MONITORING. DENIES ANY PAIN. CONDITION UNCHANGED. WILL CONTINUE TO MONITOR.
--- NOTE | 2019-12-16 19:15 | NUR ---
RECEIVED BEDSIDE REPORT FROM DAY SHIFT NURSE. PATIENT IS AWAKE, ALERT, AND COOPERATIVE. RESPIRATION EVEN UNLABORED ON ROOM AIR. NO DISTRESS NOTED. SKIN IS WARM AND DRY. IV INFILTRATED. WILL INSERT A NEW ONE. PLAN OF CARE WAS DISCUSSED. MAINTAINED CONTACT AND DROPLET PRECAUTION. ALL SAFETY MEASURES IN PLACE. BED IS AT LOW POSITION. CALL LIGHT WITHIN REACH AND VERBALIZES ITS USE. WILL CONTINUE TO MONITOR.
--- NOTE | 2019-12-16 19:19 | NUR ---
GAVE REPORT TO KENNEL ASSISTANT NURSE FOR CONTINUITY OF CARE. PATIENT IN STABLE CONDITION.
--- NOTE | 2019-12-16 20:00 | NUR ---
INITIAL ASSESSMENT DONE. VITALS WERE TAKEN. PATIENT IN STABLE CONDITION. CALL LIGHT WITHIN REACH. WILL CONTINUE TO MONITOR.
--- NOTE | 2019-12-16 20:10 | NUR ---
INSERTED NEW IV 24G TO THE RIGHT FOREARM PATIENT TOLERATED IT WELL. WILL CONTINUE TO MONITOR
--- NOTE | 2019-12-16 21:00 | NUR ---
ALL SCHEDULED MEDS WERE GIVEN PER ORDER. NO ASE NOTED. CALL LIGHT WITHIN REACH. WILL CONTINUE TO MONITOR.
[2019-12-16] MEDS ORDERED: MORPHINE SULFATE 2 MG/ML SYR IVP PRN (22:35)
--- NOTE | 2019-12-16 22:40 | NUR ---
PATIENT COMPLAINED OF ABDOMINAL PAIN 8/. PRN PAIN ADMINISTERED PER ORDER. WILL CONTINUE TO MONITOR.
[2019-12-16] MEDS ORDERED: hydrALAZINE 20 MG/ML VIAL IVP ONE (23:30)
--- NOTE | 2019-12-16 23:55 | NUR ---
VITALS WERE TAKEN. PATIENT BP 189/94 HR 83. NOTIFIED MD. IS AWARE. AWAITING FOR NEW ORDERS.
[2019-12-17] VITALS: BP 189/94
--- NOTE | 2019-12-17 00:02 | NUR ---
ADMINISTERED ZESTRIL 5MG PO PER MD ORDER. WILL CONTINUE TO MONITOR BP
[2019-12-17] MEDS: LISINOPRIL 5 MG TAB PO SCH ×2 (00:03→08:37)
[2019-12-17] MEDS: NACL 0.9% 1,000 ML IV SCH ×2 (00:37→05:03)
--- NOTE | 2019-12-17 02:15 | NUR ---
CHECKED PATIENT. PATIENT SLEEPING RESPIRATION EVEN UNLABORED ON ROOM AIR. NO DISTRESS NOTED. WILL CONTINUE TO MONITOR.
--- NOTE | 2019-12-17 04:10 | NUR ---
VITALS WERE TAKEN. PATIENT IN STABLE CONDITION. NO DISTRESS NOTED. WILL CONTINUE TO MONITOR.
[2019-12-17] MEDS: metroNIDAZOLE 500 MG/NS PREMIX 100 ML IV SCH ×2 (04:22→13:06)
--- NOTE | 2019-12-17 07:12 | NUR ---
ENDORSED PATIENT TO DAY SHIFT NURSE. PATIENT IN STABLE CONDITION.
--- NOTE | 2019-12-17 07:14 | NUR ---
RECEIVED BEDSIDE REPORT FROM LINK TRAINER MECHANIC NURSE TOR FOR CONTINUITY OF CARE. PT IS AWAKE AND RESTING ON BED. PT IS AAOX2 TO NAME AND PLACE. RESPIRATION EVEN AND UNLABORED ON RA. NO SIGNS OF DISTRESS NOTED. IV ON L HAND 24G, CLEAN AND INTACT, INFUSING PER MD ORDER. SKIN CLEAN AND DRY. PT IS CONTINENT AND ABLE TO AMBULATE WITH STANDBY ASSIST. DISCUSSED PLAN OF CARE WITH PT AND PT SAID OK. ENHANCED PRECAUTION IN PLACE AND SIGN POSTED. SAFETY MEASURES IN PLACE. BED IN LOW POSITION AND CALL LIGHT WITHIN REACH. INSTRUCTED PT TO USE THE CALL LIGHT FOR ANY ASSISTANCE AND PT AWARE.
[2019-12-17 07:17] LABS: BASOPHILS % (AUTO) 0.3 % (0.0-2.0); EOSINOPHILS % (AUTO) 0.1 % (0.0-4.0); HEMOGLOBIN 13.5 g/dL (12.0-16.0); LYMPHOCYTES % (AUTO) 9.5 % (20.5-51.1); MEAN CORPUSCULAR HEMOGLOBIN 31 pg (27-31); MEAN CORPUSCULAR HGB CONC 34 g/dL (33-37); MEAN CORPUSCULAR VOLUME 91.5 fL (80-94); MONOCYTES # (AUTO) 0.7 K/uL (0.8-1.0); MONOCYTES % (AUTO) 6.4 % (1.7-9.3); NEUTROPHILS # (AUTO) 8.8 K/uL (1.8-7.7); NEUTROPHILS % (AUTO) 83.7 % (42.2-75.2); PLATELET COUNT (AUTO) 284 K/uL (140-450); RED BLOOD CELL COUNT(AUTO) 4.38 MIL/uL (4.20-5.40); RED CELL DISTRIBUTION WIDTH 13.6 % (11.6-13.7); WHITE BLOOD COUNT (AUTO) 10.6 K/uL (4.8-10.8)
[2019-12-17 07:20] LABS: ANION GAP 17.3 (8-16); CARBON DIOXIDE 21.2 mmol/L (21-32); CREATININE 0.6 mg/dL (0.6-1.3); POTASSIUM 3.5 mmol/L (3.5-5.1)
[2019-12-17 08:00] VITALS: BP 147/89
--- NOTE | 2019-12-17 08:55 | NUR ---
CHECKED VITAL SIGNS PRIOR TO MED ADMINISTER, BP 147/89 PULSE 92. ADMINISTERED AM SCHEDULED MEDS PER MD ORDER, MEDS EDUCATION PROVIDED AND PT SAID OK. PT IS GETTING READY TO EAT HER BREAKFAST. DENIED PAIN, SOB AND DIZZINESS. NO SIGNS OF DISTRESS NOTED. TELE MONITOR ATTACHED. SAFETY MEASURES IN PLACE. INSTRUCTED PT TO USE THE CALL LIGHT FOR ANY ASSISTANCE AND PT AWARE.
[2019-12-17] MEDS ORDERED: ALUMINUM HYD/MAG/SIMETHICONE 30 ML UDC PO SCH (08:57)
[2019-12-17] MEDS ORDERED: DICYCLOMINE HCL LIQUID 10 MG/5 ML UDC PO SCH (08:58)
[2019-12-17] MEDS ORDERED: LIDOCAINE VISCOUS 2% 20 ML UDC PO SCH (08:58)
--- NOTE | 2019-12-17 10:05 | NUR ---
Invertebrate Paleontologist Note: Patient is a 64-year-old female admitted for general weakness. Patient has PMHX of essential hypertension and dyslipedemia. Patient was admitted from home. SW attempted to contact patient's emergency contact Lillian Sparks [phone]. SW left voicemail to follow up.
--- NOTE | 2019-12-17 10:14 | NUR ---
ADMINISTERED MEDS PER MD ORDER, MEDS EDUCATION PROVIDED AND PT SAID OK. PT COMPLAINED THE BAD TASTES OF MEDS AND TOOK AWHILE TO SWALLOW. PT IS AWAKE AND TALKING TO MARJAN OVER THE PHONE. DENIED PAIN, SOB AND DIZZINESS. NO SIGNS OF DISTRESS NOTED. SAFETY MEASURES IN PLACE. BED IN LOW POSITION AND CALL LIGHT WITHIN REACH.
--- NOTE | 2019-12-17 11:32 | NUR ---
GEOTECHNICAL OPERATING ENGINEER IS PROVIDING AM HYGIENE CARE. NO SIGNS OF DISTRESS NOTED. SAFETY MEASURES IN PLACE.
--- NOTE | 2019-12-17 12:23 | NUR ---
PROVIDED LUNCH TRAY AND ASSISTED PT TO TO SIT UP ON BED. NO SIGNS OF DISTRESS NOTED. SAFETY MEASURES IN PLACE.
--- NOTE | 2019-12-17 13:12 | NUR ---
ADMINISTERED SCHEDULED ANTIBIOTIC PER MD ORDER, MED EDUCATION PROVIDED TO PT AND PT SAID OK. PT AWAKE AND WATCHING TV ON BED AT THIS TIME. DENIED PAIN, SOB AND DIZZINESS. NO SIGNS OF DISTRESS NOTED. SAFETY MEASURES IN PLACE. INSTRUCTED PT TO USE THE CALL LIGHT FOR ANY ASSISTANCE AND PT AWARE.
--- NOTE | 2019-12-17 15:19 | NUR ---
DR BERMEO IS BY BEDSIDE.
--- NOTE | 2019-12-17 15:44 | NUR ---
CHECKED VITAL SIGNS AND OBTAINED CONSENT FOR EGD AND COLONOSCOPY. PATIENT VERBALIZED, "OK, SO I WON'T GET BREAK FAST TOMORROW? THEY ARE GOING TO CHECK MY COLONS AND MY THROAT." EXPLAINED TO PT THAT SHE WILL BE NPO BY MID-NIGHT EXCEPTS MEDS AND WILL BE GETTING CLEAR LIQUID FOR DINNER. PT SAID OK. PT AWAKE AND WATCHING TV ON BED AT THIS TIME. NO SIGNS OF DISTRESS NOTED. SAFETY MEASURES IN PLACE. BED IN LOW POSITION AND CALL LIGHT WITHIN REACH.
[2019-12-17 16:00] VITALS: BP 153/91
[2019-12-17] MEDS: PANTOPRAZOLE 40 MG INJ VIAL IVP SCH (16:18)
[2019-12-17] MEDS: SUPREP BOWEL PREP KIT 354 ML SOLN.RECON PO SCH (16:19)
--- NOTE | 2019-12-17 16:30 | NUR ---
ADMINISTERED MEDS PER MD ORDER, EXPLAINED TO PT THAT DUE TO PROCEDURE TOMORROW, MD WANTS TO PREP HER COLON, AND ADMINISTERED PROTONIX VIA IVP, MED EDUCATION ALSO PROVIDED TO PT, PT VERBALIZED UNDERSTANDING. PT IS AWAKE AND WATCHING TV ON BED. DENIED PAIN, SOB AND DIZZINESS. SAFETY MEASURES IN PLACE. BED IN LOW POSITION AND CALL LIGHT WITHIN REACH. INSTRUCTED PT TO USE THE CALL LIGHT OR TELEPHONE FOR ANY ASSISTANCE AND PT AWARE.
[2019-12-17] MEDS: LEVOFLOXACIN 750 MG/D5W PREMIX 150 ML IV SCH (17:54)
--- NOTE | 2019-12-17 18:06 | NUR ---
CHECKED VITAL SIGNS AND PROVIDED DINNER TRAY. ADMINISTERED MED PER MD ORDER, MED EDUCATION PROVIDED AND PT SAID OK. PT IS AWAKE AND WATCHING TV AT THIS TIME. NO SIGNS OF DISTRESS NOTED. TELE MONITOR ATTACHED. SAFETY MEASURES IN PLACE.
--- NOTE | 2019-12-17 18:13 | NUR ---
RECEIVED A CRITICAL FROM LAB FOR COVID-19, NEGATIVE. DR HERRERA MADE AWARE AND NO ORDER RECEIVED AT THIS TIME.
--- NOTE | 2019-12-17 19:14 | NUR ---
ENDORSED PT AT BEDSIDE TO GRAIN DRIER OPERATOR NURSE FOR CONTINUITY OF CARE. PT IS IN STABLE CONDITION.
--- NOTE | 2019-12-17 19:15 | NUR ---
RECEIVED BEDSIDE REPORT FROM DAY SHIFT NURSE. PATIENT IS AWAKE AND COOPERATIVE. AAOX2. RESPIRATION EVEN UNLABORED ON ROOM AIR. NO DISTRESS NOTED. SKIN IS WARM AND DRY. IV PATENT AND INTACT. PLAN OF CARE WAS DISCUSSED. ALL SAFETY MEASURES IN PLACE. BED IS AT LOW POSITION. CALL LIGHT WITHIN REACH AND VERBALIZES ITS USE. WILL CONTINUE TO MONITOR.
[2019-12-17] MEDS ORDERED: LISINOPRIL 10 MG TAB PO SCH (20:00)
--- NOTE | 2019-12-17 20:00 | NUR ---
PER PATIENT REQUEST PATIENT DOESNT WANT TO TAKE SUPER BOWEL PREP KIT MEDICATION DUE TO ITS HORRIBLE TASTE. NOTIFIED MD REGARDING PATIENT REQUEST. AWAITING FOR NEW ORDERS. WILL CONTINUE TO MONITOR.
--- NOTE | 2019-12-17 20:10 | NUR ---
INITIAL ASSESSMENT DONE VITALS WERE TAKEN. PATIENT BP IS ELEVATED. SCHEDULED BP MEDICATION WILL BE GIVEN. WILL CONTINUE TO MONITOR.
--- NOTE | 2019-12-17 20:36 | NUR ---
ALL SCHEDULED MEDS WERE GIVEN PER MD ORDER. WILL CONTINUE TO MONITOR.
[2019-12-17] MEDS ORDERED: LACTULOSE 20 GM/30 ML UDC PO SCH (21:25)
--- NOTE | 2019-12-17 22:10 | NUR ---
ADMINISTERED LACTULOSE AND SENNA PER MD ORDER. WILL CONTINUE TO MONITOR.
[2019-12-17] MEDS: SENNA 8.6 MG TAB PO SCH ×2 (22:15→23:30)
--- NOTE | 2019-12-17 22:42 | NUR ---
ENDORSED PATIENT FOR CONTINUITY OF CARE. PATIENT IN STABLE CONDITION. NO DISTRESS NOTED.
--- NOTE | 2019-12-17 22:45 | NUR ---
RECEIVED REPORT TO PATIENT FROM ELIF LENTZ. PATIENT IS SLEEPING. NO SOB. WITH ON GOING IVF RUNNING 10CC/HR. LOW BED IN PLACE. PLAN OF CARE WAS DISCUSSED. WILL CONTINUE TO MONITOR.
[2019-12-18] VITALS: BP 144/75
[2019-12-18] MEDS: SENNA 8.6 MG TAB PO SCH ×2 (00:32→01:42)
[2019-12-18] MEDS ORDERED: SENNA 8.6 MG TAB ONE (01:40)
[2019-12-18] MEDS: SUPREP BOWEL PREP KIT 354 ML SOLN.RECON PO SCH ×4 (04:00→21:00)
--- NOTE | 2019-12-18 04:08 | NUR ---
PATIENT REFUSED SUPREP BOWEL PREP KIT. EXPLAINED RISKS AND BENEFITS BUT STILL PATIENT REFUSED.
[2019-12-18 07:17] LABS: BASOPHILS # (AUTO) 0.1 K/uL (0.00-0.22); BASOPHILS % (AUTO) 0.8 % (0.0-2.0); EOSINOPHILS # (AUTO) 0.1 K/uL (0-0.4); HEMATOCRIT 42.3 % (36-48); HEMOGLOBIN 14.3 g/dL (12.0-16.0); LYMPHOCYTES # (AUTO) 1.5 K/uL (2.5-16.5); LYMPHOCYTES % (AUTO) 18.7 % (20.5-51.1); MEAN CORPUSCULAR HEMOGLOBIN 31 pg (27-31); MEAN CORPUSCULAR HGB CONC 34 g/dL (33-37); MEAN CORPUSCULAR VOLUME 91.4 fL (80-94); MONOCYTES # (AUTO) 0.9 K/uL (0.8-1.0); MONOCYTES % (AUTO) 10.8 % (1.7-9.3); NEUTROPHILS # (AUTO) 5.5 K/uL (1.8-7.7); NEUTROPHILS % (AUTO) 68.7 % (42.2-75.2); PLATELET COUNT (AUTO) 292 K/uL (140-450); RED BLOOD CELL COUNT(AUTO) 4.63 MIL/uL (4.20-5.40); RED CELL DISTRIBUTION WIDTH 13.5 % (11.6-13.7)
[2019-12-18 07:29] LABS: ANION GAP 15.8 (8-16); CARBON DIOXIDE 23.7 mmol/L (21-32); CREATININE 0.9 mg/dL (0.6-1.3); POTASSIUM 3.5 mmol/L (3.5-5.1)
--- NOTE | 2019-12-18 07:35 | NUR ---
PATIENT IS AWAKE. NO SOB. DENIES PAIN. WILL ENDORSE TO AM SHIFT RN FOR CONTINUITY OF CARE.
--- NOTE | 2019-12-18 07:36 | NUR ---
RECEIVED BEDSIDE REPORT FROM MILITARY ANALYST NURSE, REYNA, FOR CONTINUITY OF CARE. PT IS LYING IN BED AWAKE, A&OX2; INTERMITTENT CONFUSION. RESPIRATIONS ARE EVEN AND UNLABORED, BREATHING TO ROOM AIR. LEFT FOREARM IV IS PATENT, INTACT. PT IS NPO AT THIS TIME. SAFETY MEASURES IN PLACE; CALL LIGHT WITHIN REACH, BED IN LOW POSITION. SIGN POSTED, BED ALARM ACTIVATED. WILL CONTINUE TO MONITOR.
[2019-12-18 08:00] VITALS: BP 152/70
--- NOTE | 2019-12-18 08:57 | NUR ---
WAS TOLD BY GRAPHIC PRODUCTION ARTIST NURSE THAT PT REFUSED BOWEL PREP. SPOKE WITH PT AND SHE HAS AGREED TO TAKE BOWEL PREP TO PREPARE FOR EGD TODAY. RESIDENT DOCTOR WAS INFORMED.
[2019-12-18] MEDS: LISINOPRIL 20 MG TAB PO SCH (09:33)
[2019-12-18] MEDS: PANTOPRAZOLE 40 MG INJ VIAL IVP SCH (09:33)
--- NOTE | 2019-12-18 09:44 | NUR ---
PT'S SCHEDULED MEDS GIVEN. PT TOLERATED PO LISINOPRIL WELL; BP: 148/87. PT REFUSED ORDERED BOWEL PREP; STATED, "I DON'T WANT TO DRINK ANYTHING". WILL NOTIFY OF PT'S REFUSAL.
--- NOTE | 2019-12-18 10:24 | NUR ---
CALLED DR. FAGAN AND INFORMED HIM OF PT'S REFUSAL TO TAKE THE BOWEL PREP. DR. FAGAN IS AWARE, AND STATED TO CANCEL THE PROCEDURE AND DISCHARGE THE PT. WILL INFORM RESIDENT DOCTORS OF THE DITUSTION.
[2019-12-18] MEDS: NACL 0.9% 1,000 ML IV SCH (10:37)
--- NOTE | 2019-12-18 10:42 | NUR ---
RESIDENT DR IS AWARE THAT PT REFUSED BOWEL PREP, AND PROCEDURE SHOULD BE CANCELLED.
[2019-12-18] MEDS ORDERED: LISI-420 PO (11:47)
--- NOTE | 2019-12-18 12:18 | NUR ---
PT WISHES TO LEAVE AMA. DOES NOT WANT TO DRINK BOWEL PREP FOR COLONOSCOPY/EGD. REFUSES ALL FURTHER CARE BY MD AT THIS TIME. RESIDENT DR, DR GONSALES, SPOKE WITH PT AND EXPLAINED THE RISKS ANS CONSEQUENCES OF LEAVING AGAINST MEDICAL ADVICE. AMA PAPERWORK WAS SIGNED BY PT, WITH PT VERBALIZING THAT THE RISKS WERE EXPLAINED TO HER.
[2019-12-18] MEDS ORDERED: LEVO750T2 PO (12:19)
[2019-12-18] MEDS ORDERED: LACT10CA1 PO (12:19)
--- NOTE | 2019-12-18 15:21 | NUR ---
SEVERAL ATTEMPTS MADE TO CALL PTS FAMILY AND NOTIFY OF PT LEAVING AMA. LEFT MESSAGE WELL. WILL CONTINUE TO FOLLOWUP
[2019-12-18 16:00] VITALS: BP 148/87
[2019-12-18] MEDS: LEVOFLOXACIN 750 MG/D5W PREMIX 150 ML IV SCH (17:00)
--- NOTE | 2019-12-18 18:12 | NUR ---
ATTEMPTED TO CONTACT PTS FAMILY MEMBER AGAIN. UNABLE TO CONTACT. WILL ENDORSE TO CONTROL AND RECOVERY COMBAT RESCUE
--- NOTE | 2019-12-18 19:25 | NUR ---
ENDORSED TO SAW SUPERINTENDENT NURSE FOR CONTINUITY OF CARE. PT IS IN STABLE CONDITION.
--- NOTE | 2019-12-18 19:26 | NUR ---
RECD. RESTING IN BED, AWAKE, A/OX3, WITH FORGETFULNESS. STATED SHE WANTS TO GO HOME TONIGHT, ALREADY SIGNED AMA PAPER AND IV LINE REMOVED BY AM NURSE. WHEN ASKED HOW SHE IS FEELING, STATED I AM BETTER NOW. WHEN INQUIRED WHERE SHE LIVES, STATED [place]. DENIES PAIN 0/20.
--- NOTE | 2019-12-18 19:30 | NUR ---
Patient's Plan of Care was discussed and reviewed with BUBBA: KANWAL. SAFETY MEASURES ARE IN PLACE. WILL CONTINUE TO MONITOR.
--- NOTE | 2019-12-18 19:45 | NUR ---
GAVE A PHONE NUMBER FOR MARJAN, [place] BUT WHEN NUMBER WAS DIALED, IT IS A WRONG NUMBER. DIALED THE NUMBER OF HER FRIEND IN THE FACE SHEET BUT NOBODY ANSWERS, JUST LEAVE A MESSAGE.
--- NOTE | 2019-12-18 21:00 | NUR ---
WENT OUT OF HER ROOM, WENT TO THE STATION, STATED SHE WANTS TO GO HOME. ADVISED TO GO BACK TO ROOM AND WILL ASK MD.
--- NOTE | 2019-12-18 21:10 | NUR ---
INFORMED DR. JAVED, STATED PATIENT IS SAFE TO GO HOME.
--- NOTE | 2019-12-18 21:15 | NUR ---
PATIENT HAS TWO ADDRESS TO GO TO, [place] AND [place]. WANTS TO GO TO [place] BUT FRIEND IN [place] DOES NOT NOT ANSWER PHONE.
--- NOTE | 2019-12-18 21:30 | NUR ---
DR. JAVED AND ENVIRONMENTAL PLANNING ENGINEER CEE CAME TO PATIENT'S ROOM AND SPOKE WITH PATIENT,WANTS TO GO HOME TONIGHT. PATIENT IS GIVING TELEPHONE NUMBERS THAT CANNOT BE CONTACTED.
--- NOTE | 2019-12-18 21:55 | NUR ---
VERBALIZED SHE WANTS TO STAY FOR THE NIGHT AND GO HOME TOMORROW. INFORMED DR. JAVED AND NURSE FIELD ADMINISTRATIVE ASSISTANT CEE.
--- NOTE | 2019-12-18 22:00 | NUR ---
SANDWICH GIVEN REQUESTED.
--- NOTE | 2019-12-18 23:00 | NUR ---
AMBULATED TO THE BR TO HAVE BM, GAIT STEADY. NO DIARRHEA NOTED. BACK TO BED, ASKED AGAIN FOR ANOTHER SANDWICH, REMINDED THAT THERE IS STILL HALF OF THE SANDWICH ON THE BEDSIDE TABLE.
[2019-12-19] VITALS: BP 141/73
--- NOTE | 2019-12-19 01:00 | NUR ---
SLEEPING COMFORTABLY IN BED.
--- NOTE | 2019-12-19 02:57 | NUR ---
OUT OF BED, WENT TO BR TO VOID, BACK TO SLEEP AFTER VOIDING.
--- NOTE | 2019-12-19 06:00 | NUR ---
STILL SLEEPING COMFORTABLY IN BED.
--- NOTE | 2019-12-19 07:20 | NUR ---
COMFORTABLE IN BED, STILL SLEEPING, STABLE. ENDORSED TO AM SHIFT NURSE PATIENT VERBALIZED DESIRE TO GO HOME AFTER BREAKFAST.
--- NOTE | 2019-12-19 07:21 | NUR ---
RECEIVED BEDSIDE REPORT FROM WIRE WEAVER CLOTH NURSE, FOR CONTINUITY OF CARE. PT IS LYING IN BED, RESTING. AA&OX3. RESPIRATIONS ARE EVEN AND UNLABORED, BREATHING TO ROOM AIR. NO ACUTE DISTRESS NOTED. SAFETY MEASURES IN PLACE; CALL LIGHT WITHIN REACH, BED IN LOW POSITION. WILL CONTINUE TO MONITOR.
--- NOTE | 2019-12-19 07:58 | NUR ---
PT ASKED IF SHE CAN, "GO HOME NOW". PT STATED THAT SHE WILL STAY WITH HER MOTHER, KYRA. SHE PROVIDED A PHONE NUMBER [phone], WHICH SHE STATED WAS KYRA'S NUMBER. WHEN CALLED, THERE WAS NO ANSWER. PT IS GETTING READY TO EAT BREAKFAST. NO ACUTE DISTRESS NOTED.
[2019-12-19] MEDS: PANTOPRAZOLE 40 MG INJ VIAL IVP SCH (09:00)
[2019-12-19] MEDS: LISINOPRIL 20 MG TAB PO SCH (10:25)
--- NOTE | 2019-12-19 10:26 | NUR ---
PT'S SCHEDULED PO BP MEDICATION WAS GIVEN. BP: 133/76. PT TOLERATED PT'S SCHEDULED MEDICATIONS WERE GIVEN. MEDICATION EDUCATION WAS PROVIDED, WITH PT VERBALIZING UNDERSTANDING. PT TOLERATED PO MEDS WELL. PT WANTS TO LEAVE THE HOSPITAL AND STATED THAT SHE HAS $20 FOR TRANSPORTATION HOME. WILL TRY TO ARRANGE FOR TRANSPORTATION. AMA PAPERS HAVE ALRREADY BEEN SIGNED. NO ACUTE DISTRESS NOTED. SAFETY MEASURES IN PLACE. WILL CONTINUE TO MONITOR.
--- NOTE | 2019-12-19 11:07 | NUR ---
FROYLAN FROM CASE MANAGEMENT ARRANGED FOR A TAXI TO DIG[employer] MEDIA INTERN THE PT AND TRANSPORT HER TO THE ADDRESS SHE PROVIDED. PT STATED THAT HER HOME ADDRESS IS: [address]. SHE WAS INFORMED THAT THE TAXI SERVICE WILL COST $8.00. SHE STATED THAT SHE HAS $20 IN [place] TO PAY FOR THE FEE. PT ESCORTED TO THE TAXI VIA WHEELCHAIR.
--- NOTE | 2019-12-19 13:29 | NUR ---
RECEIVED A CALL FROM MELISSA WHO STATED THAT HE KNOWS THE PATIENT AND IS WILLING TO PICK HER UP IF SHE COMES BACK TO THE HOSPITAL. MELISSA: [phone]
== END 2019-12-19 11:07 | disposition left against medical advice (07) | DRG 249 ==
LOC: MED 16:18 → EEVIPCON 18:37 → MTU 18:37
PROVIDERS: ADMIT General Practice; ATTEND General Practice
DX: A08.4 Viral intestinal infection, unspecified (principal); G92 Toxic encephalopathy; D75.1 Secondary polycythemia; E86.0 Dehydration; Z88.8 Allergy status to other drugs, medicaments and biological substances; F19.10 Other psychoactive substance abuse, uncomplicated; E27.9 Disorder of adrenal gland, unspecified; I10 Essential (primary) hypertension; K57.30 Diverticulosis of large intestine without perforation or abscess without bleeding; K44.9 Diaphragmatic hernia without obstruction or gangrene; Z90.710 Acquired absence of both cervix and uterus; E78.5 Hyperlipidemia, unspecified; Z03.818 Encounter for observation for suspected exposure to other biological agents ruled out; Z98.891 History of uterine scar from previous surgery
CPT/HCPCS: 36415; 71045; 80048; 80053; 80305; 81001; 82150; 82272; 83036; 83605; 83615; 83690; 83735; 83880; 84100; 84134; 84443; 84484; 85025; 85610; 85730; 86140; 87040; 87045; 87070; 87081; 87086; 87804; 93005; 96374; 96375; 97110; 97112; 97116; 97161-GP; 97530; 99285; C9113; J0696; J1956; J2270; J2405; J2765; J3490; J7030; J7060; Q0092

== ENCOUNTER 2019-12-22 13:42 | Emergency (ER) | payer MEDICARE, OTHER, SELFPAY ==
[~2019-12-22] VITALS: Ht 154.9 cm; Wt 73.5 kg
[~2019-12-22 13:42] MED LIST changes: -ENAL20TA6; +LACT10CA1 PO; +LEVO750T2 PO; +LISI-420 PO; -LORA-478 PO; -[UNRECOGNIZED DRUG - CODE]
--- NOTE | 2019-12-22 13:51 | NUR ---
PT AMBULATED TO ER BED 11
[2019-12-22 13:53] VITALS: BP 118/84
[2019-12-22] MEDS ORDERED: DICYCLOMINE HCL LIQUID 20 MG, ALUMINUM HYD/MAG/SIMETHICONE 30 ML, LIDOCAINE VISCOUS 2% ... PO ONE ×3 (14:00)
[2019-12-22] MEDS ORDERED: LIDOCAINE VISCOUS 2% 20 ML UDC ONE (14:02)
[2019-12-22] MEDS ORDERED: DICYCLOMINE HCL LIQUID 10 MG/5 ML UDC ONE (14:02)
[2019-12-22] MEDS ORDERED: ALUMINUM HYD/MAG/SIMETHICONE 30 ML UDC ONE (14:02)
--- NOTE | 2019-12-22 14:13 | NUR ---
64 Y/O FEMALE PRESENTS WITH EPIGATRIC PAIN X2 WEEKS. PAIN 5/10, EPIGASTRIC PAIN, SHARP NON RADIATING. ABD SOFT/ NONDISTENDED. BOWEL SOUNDS NORMOACTIVE IN ALL QUADRANTS. RESP EVEN AND UNLABORED. LUNG SOUNDS CLEAR IN ALL QUADRANTS. SKIN INTACT. CAP REFILL <3. PINK MUCOUS MEMBRANES. PT C/O SEVERAL EPISDOES OF DIARRHEA FOR LAST TWO WEEKS. VSS, BED IN LOWEST POSITION. ALL NEEDS MET AT THIS TIME
[2019-12-22 14:21] LABS: BASOPHILS # (AUTO) 0.1 K/uL (0.00-0.22); EOSINOPHILS # (AUTO) 0.3 K/uL (0-0.4); EOSINOPHILS % (AUTO) 4.2 % (0.0-4.0); HEMATOCRIT 37.5 % (36-48); HEMOGLOBIN 12.5 g/dL (12.0-16.0); LYMPHOCYTES # (AUTO) 2.3 K/uL (2.5-16.5); LYMPHOCYTES % (AUTO) 32.8 % (20.5-51.1); MEAN CORPUSCULAR HEMOGLOBIN 31 pg (27-31); MEAN CORPUSCULAR HGB CONC 33 g/dL (33-37); MEAN CORPUSCULAR VOLUME 91.9 fL (80-94); MONOCYTES # (AUTO) 0.6 K/uL (0.8-1.0); MONOCYTES % (AUTO) 9.1 % (1.7-9.3); NEUTROPHILS # (AUTO) 3.7 K/uL (1.8-7.7); NEUTROPHILS % (AUTO) 52.9 % (42.2-75.2); PLATELET COUNT (AUTO) 321 K/uL (140-450); RED BLOOD CELL COUNT(AUTO) 4.08 MIL/uL (4.20-5.40); RED CELL DISTRIBUTION WIDTH 14.2 % (11.6-13.7)
--- NOTE | 2019-12-22 14:28 | NUR ---
PT STATES SHE FEELS "MUCH BETTER" AFTER MEDICATIONS. NO PAIN/ GASTRIC DISCOMFORT REPORTED AT THIS TIME
[2019-12-22 14:35] LABS: ANION GAP 12.5 (8-16); CREATININE 1.1 mg/dL (0.6-1.3); POTASSIUM 3.5 mmol/L (3.5-5.1); TOTAL BILIRUBIN 0.2 mg/dL (0.0-1.0)
[2019-12-22 14:56] VITALS: BP 115/79
--- NOTE | 2019-12-22 14:56 | NUR ---
Patient discharged with v/s stable. Written and verbal after care instructions given and explained. Patient alert, oriented and verbalized understanding of instructions. Ambulatory with steady gait. All questions addressed prior to discharge. ID band removed. Patient advised to follow up with PMD. Rx of ZANTAC given. Patient educated on indication of medication including possible reaction and side effects. Opportunity to ask questions provided and answered.
== END 2019-12-22 14:56 | disposition home or self-care (01) ==
LOC: EEVIPCON 13:42 → MED 13:42
DX: K29.70 Gastritis, unspecified, without bleeding (principal); J44.9 Chronic obstructive pulmonary disease, unspecified; I10 Essential (primary) hypertension; Z79.899 Other long term (current) drug therapy; Z98.890 Other specified postprocedural states; Z88.8 Allergy status to other drugs, medicaments and biological substances; Z59.0 Homelessness
CPT/HCPCS: 36415; 80053; 84484; 85025; 99284

== ENCOUNTER 2020-04-21 10:57 | Emergency (ER) | payer MEDICARE, OTHER ==
[~2020-04-21] VITALS: Ht 154.9 cm; Wt 84.4 kg
[2020-04-21 11:04] VITALS: BP 143/73
[2020-04-21] MEDS ORDERED: ALUMINUM HYD/MAG/SIMETHICONE 30 ML UDC PO ONE (11:35)
[2020-04-21] MEDS ORDERED: ONDANSETRON 4 MG ODT PO ONE (11:35)
[2020-04-21] MEDS ORDERED: FAMOTIDINE 20 MG TAB PO ONE (11:35)
--- NOTE | 2020-04-21 11:41 | NUR ---
C/O EPIGASTRIC PAIN 10/10 WITH NAUSEA X 30 MIN PRIOR TO ARRIVAL. STATES BURNING SENSATION. X1 EPISODE OF VOMIT. REQUESTING GI COCKTAIL FOR GERD, STATES RELIEF WITH GI COCKTAIL LAST ER VISIT. DENIES CLINICAL LIAISON OR SOB. PMH- GERD, ANXIETY, COPD, DIVERTICULITIS
--- NOTE | 2020-04-21 11:48 | NUR ---
MEDICATIONS ADMINISTERED
[2020-04-21 12:32] VITALS: BP 128/74
--- NOTE | 2020-04-21 12:33 | NUR ---
Patient discharged with v/s stable. Written and verbal after care instructions given and explained. Patient alert, oriented and verbalized understanding of instructions. Ambulatory with steady gait. All questions addressed prior to discharge. ID band removed. Patient advised to follow up with PMD. Rx of zofran 4mg and Pepcid 40mg given. Patient educated on indication of medication including possible reaction and side effects. Opportunity to ask questions provided and answered.
== END 2020-04-21 12:33 | disposition home or self-care (01) ==
LOC: MED 10:57
DX: K29.00 Acute gastritis without bleeding (principal); J44.9 Chronic obstructive pulmonary disease, unspecified; I10 Essential (primary) hypertension; Z79.899 Other long term (current) drug therapy; Z90.710 Acquired absence of both cervix and uterus; Z88.8 Allergy status to other drugs, medicaments and biological substances
CPT/HCPCS: 93005; 99284; Q0162

== ENCOUNTER 2020-04-23 02:48 | Emergency (ER) | payer MEDICARE, OTHER ==
[~2020-04-23] VITALS: Ht 154.9 cm; Wt 76.2 kg
[2020-04-23 03:25] VITALS: BP 156/89
--- NOTE | 2020-04-23 03:25 | NUR ---
PT AMBULATED TO BED 9 WITH STEADY GAIT.
--- NOTE | 2020-04-23 03:51 | NUR ---
ERMD AT BEDSIDE.
[2020-04-23 04:00] VITALS: BP 156/89
--- NOTE | 2020-04-23 04:00 | NUR ---
ERMD ASSESSED, TREATED, AND D/C PT. NO NURSING INTERVENTIONS NEEDED.
--- NOTE | 2020-04-23 04:00 | NUR ---
Patient discharged with v/s stable. Written and verbal after care instructions given and explained. Patient alert, oriented and verbalized understanding of instructions. Ambulatory with steady gait. All questions addressed prior to discharge. ID band removed. Patient advised to follow up with PMD. Rx of PERMETHRIN given. Patient educated on indication of medication including possible reaction and side effects. Opportunity to ask questions provided and answered.
== END 2020-04-23 04:00 | disposition home or self-care (01) ==
LOC: MED 02:48
DX: B88.0 Other acariasis (principal); I10 Essential (primary) hypertension; J44.9 Chronic obstructive pulmonary disease, unspecified; K21.9 Gastro-esophageal reflux disease without esophagitis; Z88.8 Allergy status to other drugs, medicaments and biological substances; Z79.899 Other long term (current) drug therapy
CPT/HCPCS: 99282

== ENCOUNTER 2020-08-04 05:49 | Emergency (ER) | payer MEDICARE, OTHER ==
[~2020-08-04] VITALS: Ht 162.6 cm; Wt 70.3 kg
[2020-08-04 06:00] VITALS: BP 139/100
--- NOTE | 2020-08-04 06:00 | NUR ---
TO TENT # 01 AMBULATORY
--- NOTE | 2020-08-04 06:20 | NUR ---
SEEN AND EXAMINED BY RYAN WITH ORDERS AND CARRIED OUT.
[2020-08-04] MEDS ORDERED: ONDANSETRON 4 MG ODT PO ONE (06:25)
--- NOTE | 2020-08-04 06:25 | NUR ---
SWAB DONE AND SENT TO LAB
--- NOTE | 2020-08-04 06:26 | NUR ---
MEDICATED PERETNS ORDER, PATIENT TOLERATED WELL.
[2020-08-04 06:40] VITALS: BP 139/100
--- NOTE | 2020-08-04 06:40 | NUR ---
Patient discharged with v/s stable. Written and verbal after care instructions given and explained. Patient alert, oriented and verbalized understanding of instructions. Ambulatory with steady gait. All questions addressed prior to discharge. ID band removed. Patient advised to follow up with PMD. Rx of ZOFRAN 8MG given. Patient educated on indication of medication including possible reaction and side effects. Opportunity to ask questions provided and answered.
== END 2020-08-04 06:40 | disposition home or self-care (01) ==
LOC: MED 05:49
DX: R11.2 Nausea with vomiting, unspecified (principal); J44.9 Chronic obstructive pulmonary disease, unspecified; K21.9 Gastro-esophageal reflux disease without esophagitis; F17.210 Nicotine dependence, cigarettes, uncomplicated; Z79.899 Other long term (current) drug therapy; Z88.9 Allergy status to unspecified drugs, medicaments and biological substances; Z90.711 Acquired absence of uterus with remaining cervical stump; Z20.828 Contact with and (suspected) exposure to other viral communicable diseases
CPT/HCPCS: 99283; Q0162; U0003

== ENCOUNTER 2021-11-02 06:49 | Emergency (ER) | payer MEDICARE, OTHER ==
[~2021-11-02] VITALS: Ht 154.9 cm; Wt 70.9 kg
[~2021-11-02 06:49] MED LIST changes: -LISI-420 PO; +LISI20TA29 PO
[2021-11-02 06:56] VITALS: BP 158/85
--- NOTE | 2021-11-02 07:06 | NUR ---
Dr. Gauthier examining patient.
--- NOTE | 2021-11-02 07:23 | NUR ---
urine walked down to lab
[2021-11-02 07:39] LABS: APPEARANCE,URINE CLEAR (CLEAR); BILIRUBIN,URINE NEGATIVE (NEGATIVE); BLOOD, URINE NEGATIVE (NEGATIVE); COLOR,URINE YELLOW (YELLOW); LEUKOCYTE ESTERASE ,URINE NEGATIVE (NEGATIVE); NITRITE, URINE NEGATIVE (NEGATIVE); UGLUCOSE NEGATIVE (NEGATIVE)
[2021-11-02] MEDS ORDERED: [UNRECOGNIZED DRUG - CODE] PO (07:39)
[2021-11-02] MEDS ORDERED: LISI-487 PO (07:44)
[2021-11-02] MEDS ORDERED: ZOLP5TAB1 PO (07:44)
--- NOTE | 2021-11-02 07:50 | NUR ---
Patient discharged with v/s stable. Written and verbal after care instructions ABOUT URINARY INCONTINENCE, INSOMNIA, AND DIVERTICULOSIS given and explained. Patient alert, oriented and verbalized understanding of instructions. Ambulatory with steady gait. All questions addressed prior to discharge. ID band removed. Patient advised to follow up with PMD. Rx of LISINOPRIL, OXYBUTYNIN CHLORIDE, AND AMBIEN given. Patient educated on indication of medication including possible reaction and side effects. Opportunity to ask questions provided and answered.
== END 2021-11-02 07:50 | disposition home or self-care (01) ==
LOC: MED 06:49
DX: N39.498 Other specified urinary incontinence (principal); F17.210 Nicotine dependence, cigarettes, uncomplicated; Z71.6 Tobacco abuse counseling; J44.1 Chronic obstructive pulmonary disease with (acute) exacerbation; K21.9 Gastro-esophageal reflux disease without esophagitis; I10 Essential (primary) hypertension; Z88.8 Allergy status to other drugs, medicaments and biological substances
CPT/HCPCS: 81003; 99283

== ENCOUNTER 2022-01-30 12:45 | Emergency (ER) | payer MEDICARE, OTHER ==
[~2022-01-30] VITALS: Ht 154.9 cm; Wt 73.3 kg
[~2022-01-30 12:45] MED LIST changes: +LISI-487 PO; +ZOLP5TAB1 PO; +[UNRECOGNIZED DRUG - CODE] PO
[2022-01-30 12:57] VITALS: BP 112/48
[2022-01-30 15:01] LABS: BASOPHILS # (AUTO) 0.1 K/uL (0.00-0.22); BASOPHILS % (AUTO) 0.8 % (0.0-2.0); EOSINOPHILS # (AUTO) 0.3 K/uL (0-0.4); EOSINOPHILS % (AUTO) 3.2 % (0.0-4.0); HEMATOCRIT 45.5 % (36-48); HEMOGLOBIN 15.2 g/dL (12.0-16.0); LYMPHOCYTES # (AUTO) 2.4 K/uL (2.5-16.5); MEAN CORPUSCULAR HEMOGLOBIN 30 pg (27-31); MEAN CORPUSCULAR HGB CONC 33 g/dL (33-37); MEAN CORPUSCULAR VOLUME 90.1 fL (80-94); MONOCYTES # (AUTO) 0.6 K/uL (0.8-1.0); NEUTROPHILS # (AUTO) 4.7 K/uL (1.8-7.7); PLATELET COUNT (AUTO) 331 K/uL (140-450); RED BLOOD CELL COUNT(AUTO) 5.05 MIL/uL (4.20-5.40); RED CELL DISTRIBUTION WIDTH 14.4 % (11.6-13.7); WHITE BLOOD COUNT (AUTO) 8.1 K/uL (4.8-10.8)
[2022-01-30] MEDS ORDERED: BENZONATATE 100 MG CAPLF PO ONE (15:20)
[2022-01-30] MEDS ORDERED: ALUMINUM HYD/MAG/SIMETHICONE 30 ML UDC PO ONE (15:20)
[2022-01-30 15:29] LABS: ALBUMIN 4.1 g/dL (3.4-5.0); ANION GAP 15.3 (8-16); ASPARTATE AMINOTRANSFERASE 16 U/L (15-37); CARBON DIOXIDE 21.8 mmol/L (21-32); CHLORIDE 107 mmol/L (98-107); CREATININE 0.7 mg/dL (0.6-1.3); GFR ARICAN-AMERICAN 107 mL/min (>90); GLUCOSE 105 mg/dL (74-106); LIPASE 102 U/L (73-393); POTASSIUM 4.1 mmol/L (3.5-5.1); SODIUM SERUM 140 mmol/L (136-145); TOTAL BILIRUBIN 0.4 mg/dL (0.0-1.0); UREA NITROGEN, BLOOD 21 mg/dL (7-18)
[2022-01-30] MEDS ORDERED: BENZ150C2 PO ×2 (16:01→17:23)
[2022-01-30] MEDS ORDERED: ZOLP5TAB1 PO ×2 (16:01→17:23)
[2022-01-30 16:30] VITALS: BP 157/98
== END 2022-01-30 16:30 | disposition home or self-care (01) ==
LOC: MED 12:45
DX: R05.9 Cough, unspecified (principal); J44.9 Chronic obstructive pulmonary disease, unspecified; K21.9 Gastro-esophageal reflux disease without esophagitis; Z79.899 Other long term (current) drug therapy; Z79.2 Long term (current) use of antibiotics; Z87.891 Personal history of nicotine dependence; Z88.8 Allergy status to other drugs, medicaments and biological substances
CPT/HCPCS: 36415; 71045; 80053; 81002; 83690; 84484; 85025; 93005; 99285